=== PATIENT | male | born 1935 | race Caucasian/White ===

== ENCOUNTER 2019-07-09 10:27 | Emergency (ER) | payer MEDICARE, OTHER ==
--- NOTE | 2019-07-09 10:49 | EDM.PDOC ---
ED HPI GENERAL MEDICAL PROBLEM - General Stated Complaint: CHEST PAIN Time Seen by Provider: 07/09/19 10:46 Source of Information: Reports: Patient History Limitations: Reports: No Limitations - History of Present Illness INITIAL COMMENTS - FREE TEXT/NARRATIVE: 84 yo male with intermittent chest pain. For 2 weeks. Described as mild pressure. No radiation,and no association withand SOB,cough or fever. He has HTN ,HLD and CAD,all stable. chest Pain Score (Numeric/FACES): 1 - Related Data Allergies Allergy/AdvReac Type Severity Reaction Status Date / Time No Known Allergies Allergy Verified 07/09/19 10:57 Home Meds: Home Meds Carvedilol [Coreg] 25 mg PO BID 12/15/15 [History] Hydrochlorothiazide 25 mg PO DAILY 12/15/15 [History] Simvastatin [Zocor] 20 mg PO BEDTIME 12/15/15 [History] Finasteride 5 mg PO DAILY 07/09/19 [History] Furosemide 40 mg PO DAILY 07/09/19 [History] Meloxicam 15 mg PO DAILY 07/09/19 [History] Potassium Chloride 10 meq PO DAILY 07/09/19 [History] Past Medical History HEENT History: Reports: Cataract Cardiovascular History: Reports: High Cholesterol, Hypertension, [place] Respiratory History: Reports: None Gastrointestinal History: Reports: Colon Polyp Genitourinary History: Reports: Prostate Disorder 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 Musculoskeletal History: Reports: Osteoarthritis Neurological History: Reports: None Psychiatric History: Reports: None Endocrine/Metabolic History: Reports: None Hematologic History: Reports: None Immunologic History: Reports: None Oncologic (Cancer) History: Reports: None Dermatologic History: Reports: None - Infectious Disease History Infectious Disease History: Reports: Chicken Pox, Measles, Mumps, Shingles - Past Surgical History HEENT Surgical History: Reports: Cataract Surgery Cardiovascular Surgical History: Reports: Other (See Below) Dermatological Surgical History: Reports: Skin Biopsy Social & Family History - Family History Cardiac: Reports: Hypertension, [place] - Caffeine Use Caffeine Use: Reports: Coffee ED ROS GENERAL - Review of Systems Review Of Systems: Comprehensive ROS is negative, except as noted in HPI. ED EXAM, GENERAL - Physical Exam Exam: See Below Exam Limited By: No Limitations General Appearance: Alert, WD/WN, No Apparent Distress Ears: Normal External Exam Nose: Normal Inspection Throat/Mouth: Normal Inspection Head: Normocephalic Neck: Supple Respiratory/Chest: No Respiratory Distress, Lungs Clear Cardiovascular: Normal Peripheral Pulses, Regular Rate, Rhythm, Bradycardia GI/Abdominal: Normal Bowel Sounds Neurological: CN II-XII Intact Psychiatric: Normal Affect, Normal Mood EKG INTERPRETATION EKG Date: 07/09/19 Rhythm: NSR Course - Vital Signs Last Recorded V/S: Last Vital Signs Temp 97.5 F 07/09/19 10:30 Pulse 60 07/09/19 10:30 Resp 20 07/09/19 10:30 BP 170/98 H 07/09/19 10:30 Pulse Ox 99 07/09/19 10:30 - Orders/Labs/Meds Orders: Active Orders 24 hr Category Date Time Status EKG Documentation Completion [RC] ASDIRECTED Care 07/09/19 10:45 Active EKG 12 Lead [EK] Routine Ther 07/09/19 10:44 Ordered Labs: Laboratory Tests 07/09/19 07/09/19 07/09/19 Range/Units 11:05 11:05 11:05 WBC 11.1 (4.5-12.0) X10-3/uL RBC 5.03 (4.30-5.75) x10(6)uL Hgb 15.1 (13.5-17.8) g/dL Hct 44.2 (30.0-51.3) % MCV 87.9 (80-96) fL MCH 30.0 (27.7-33.6) pg MCHC 34.1 (32.2-35.4) g/dL RDW 12.0 (11.5-15.5) % Plt Count 289 (125-369) X10(3)uL MPV 7.9 (7.4-10.4) fL Neut % (Auto) 80.9 (46-82) % Lymph % (Auto) 10.6 L (13-37) % [place] % (Auto) 6.2 (4-12) % Eos % (Auto) 2 (1.0-5.0) % Baso % (Auto) 1 (0-2) % Neut # (Auto) 8.9 H (1.6-8.3) # Lymph # (Auto) 1.2 (0.6-5.0) # [place] # (Auto) 0.7 (0.0-1.3) # Eos # (Auto) 0.2 (0.0-0.8) # Baso # (Auto) 0.1 (0.0-0.2) # Sodium 138 (135-145) mmol/L Potassium 3.2 L (3.5-5.3) mmol/L Chloride 97 L (100-110) mmol/L Carbon Dioxide 33 H (21-32) mmol/L BUN 17 (7-18) mg/dL Creatinine 1.3 (0.70-1.30) mg/dL Est Cr Clr Drug Dosing 46.10 mL/min Estimated GFR (MDRD) 52 L (>60) BUN/Creatinine Ratio 13.1 (9-20) Glucose 248 H (80-116) mg/dL Calcium 8.9 (8.6-10.2) mg/dL Troponin I 15.4 (4.0-60.3) pg/mL NT-Pro-B Natriuret Pep 247 (<=450) pg/mL Departure - Departure Time of Disposition: 11:40 Disposition: Home, Self-Care 01 Condition: Good Clinical Impression: Atypical chest pain Sepsis Event Note - Focused Exam Vital Signs: Vital Signs Temp Pulse Resp BP Pulse Ox 07/09/19 10:30 97.5 F 60 20 170/98 H 99 Date Exam was Performed: 07/09/19 Time Exam was Performed: 11:40 - Problem List & Annotations (1) Hyperglycemia due to type 2 diabetes mellitus SNOMED Code(s): 591895293096919, 071203475513580 Code(s): E11.65 - TYPE 2 DIABETES MELLITUS WITH HYPERGLYCEMIA Status: Acute Current Visit: Yes (2) HTN (hypertension) SNOMED Code(s): 75909562 Code(s): I10 - ESSENTIAL (PRIMARY) HYPERTENSION Status: Acute Current Visit: Yes (3) Atypical chest pain SNOMED Code(s): 772786873 Code(s): R07.89 - OTHER CHEST PAIN Status: Acute Current Visit: Yes - Problem List Review Problem List Initiated/Reviewed/Updated: Yes - My Orders Last 24 Hours: My Active Orders 07/09/19 10:44 EKG 12 Lead [EK] Routine 07/09/19 10:45 EKG Documentation Completion [RC] ASDIRECTED - Assessment/Plan Last 24 Hours: My Active Orders 07/09/19 10:44 EKG 12 Lead [EK] Routine 07/09/19 10:45 EKG Documentation Completion [RC] ASDIRECTED Plan: I will Discharge him . EKG was non acute. CXR normal.Trop negative.See Radha Dean.
--- NOTE | 2019-07-09 11:15 | CR ---
INDICATION: Chest discomfort. CHEST TWO VIEWS: Two PA views and a lateral view of the chest were obtained - no comparisons. The heart is normal in size and shape. The aorta is slightly tortuous with calcification in the arch. Bony structures appear to be grossly intact. A definite active infiltrate or effusion was not identified. Overlying EKG leads are noted. IMPRESSION: 1. No acute process. 2. ASD aorta. MTDD
[2019-07-09 12:15] VITALS: PULSE 57
[2019-07-09 13:16] VITALS: BP 138/80
== END 2019-07-09 12:20 | disposition home or self-care (01) ==
LOC: FB.ED 10:27
DX: R07.89 Other chest pain (principal); I10 Essential (primary) hypertension; E78.5 Hyperlipidemia, unspecified; I25.10 Atherosclerotic heart disease of native coronary artery without angina pectoris; I25.2 Old myocardial infarction; Z79.899 Other long term (current) drug therapy
CPT/HCPCS: 36415; 71046; 80048; 83880; 84484; 85025; 93005; 99284; 99285-25

== ENCOUNTER 2019-07-22 09:20 | Emergency (ER) | payer MEDICARE, OTHER ==
--- NOTE | 2019-07-22 10:20 | EDM.PDOC ---
ED HPI GENERAL MEDICAL PROBLEM - General Chief Complaint: Genitourinary Problem Stated Complaint: TROUBLE URINATING Time Seen by Provider: 07/22/19 10:16 Source of Information: Reports: Patient History Limitations: Reports: No Limitations - History of Present Illness INITIAL COMMENTS - FREE TEXT/NARRATIVE: Patient with a h/o BPH presents with intermittent decreased urinary stream x 2 days and inability to urinate this morning. Complains of right flank pain. No fevers or N/V. Location: Reports: Abdomen Severity: Moderate Right Lower Groin Pain Score (Numeric/FACES): 7 - Related Data Allergies Allergy/AdvReac Type Severity Reaction Status Date / Time No Known Allergies Allergy Verified 07/09/19 10:57 Home Meds: Home Meds Hydrochlorothiazide 25 mg PO DAILY 12/15/15 [History] Simvastatin [Zocor] 20 mg PO BEDTIME 12/15/15 [History] carvediloL [Coreg] 25 mg PO BID 12/15/15 [History] Finasteride 5 mg PO DAILY 07/09/19 [History] Furosemide 40 mg PO DAILY 07/09/19 [History] Meloxicam 15 mg PO DAILY 07/09/19 [History] Potassium Chloride 10 meq PO DAILY 07/09/19 [History] Doxazosin [Cardura] 1 mg PO DAILY #15 tab 07/22/19 [Rx] Past Medical History HEENT History: Reports: Cataract Cardiovascular History: Reports: High Cholesterol, Hypertension, [place] Respiratory History: Reports: None Gastrointestinal History: Reports: Colon Polyp Genitourinary History: Reports: BPH 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 Musculoskeletal History: Reports: Osteoarthritis Neurological History: Reports: None Psychiatric History: Reports: None Endocrine/Metabolic History: Reports: None Hematologic History: Reports: None Immunologic History: Reports: None Oncologic (Cancer) History: Reports: None Dermatologic History: Reports: None - Infectious Disease History Infectious Disease History: Reports: Chicken Pox, Measles, Mumps, Shingles - Past Surgical History HEENT Surgical History: Reports: Cataract Surgery Cardiovascular Surgical History: Reports: Other (See Below) Dermatological Surgical History: Reports: Skin Biopsy Social & Family History - Family History Cardiac: Reports: Hypertension, [place] - Caffeine Use Caffeine Use: Reports: Coffee ED ROS GENERAL - Review of Systems Review Of Systems: Comprehensive ROS is negative, except as noted in HPI. ED EXAM, RENAL/ - Physical Exam Exam: See Below Exam Limited By: No Limitations General Appearance: Alert, WD/WN, No Apparent Distress Throat/Mouth: No Airway Compromise Head: Atraumatic, Normocephalic Neck: Full Range of Motion Respiratory/Chest: No Respiratory Distress, Lungs Clear, Normal Breath Sounds Cardiovascular: Regular Rate, Rhythm, No Murmur GI/Abdominal: Soft, Non-Tender, No Distention, Other (Examined after Sarabia catheter insertion) Back Exam: Normal Inspection Extremities: Normal Range of Motion Neurological: Alert, Normal Cognition Skin Exam: Warm, Dry, Intact Course - Vital Signs Last Recorded V/S: Last Vital Signs Temp 36.8 C 07/22/19 09:33 Pulse 76 07/22/19 09:33 Resp BP 146/76 H 07/22/19 09:33 Pulse Ox 98 07/22/19 09:33 - Orders/Labs/Meds Orders: Active Orders 24 hr Category Date Time Status Sarabia Catheter Insertion [Insert Urinary Catheter] [OM. Care 07/22/19 10:00 Ordered PC] Q24H Urinary Catheter Assessment [RC] QSMOFT Care 07/22/19 09:52 Active Doxazosin [Cardura] Med 07/22/19 10:47 Once 1 mg PO ONETIME ONE Medication Orders Doxazosin Mesylate (Cardura) 1 mg PO ONETIME ONE Stop: 07/22/19 10:48 Labs: Laboratory Tests 07/22/19 Range/Units 10:08 Urine Color Yellow (YELLOW) Urine Appearance Clear (CLEAR) Urine pH 5.0 (5.0-6.5) Ur Specific Guin 1.015 (1.010-1.025) Urine Protein Negative (NEGATIVE) mg/dL Urine Glucose (UA) Normal (NORMAL) mg/dL Urine Ketones Negative (NEGATIVE) mg/dL Urine Occult Blood Negative (NEGATIVE) Urine Nitrite Negative (NEGATIVE) Urine Bilirubin Negative (NEGATIVE) Urine Urobilinogen Normal (NEGATIVE) mg/dL Ur Leukocyte Esterase Negative (NEGATIVE) Urine RBC 0-5 (0-5) Urine WBC 0-5 (0-5) Ur Squamous Epith Cells Rare (NS,R,O) Urine Bacteria Rare H (NS) Meds: Medications Generic Name Dose Route Start Last Admin Trade Name Freq PRN Reason Stop Dose Admin Doxazosin Mesylate 1 mg 07/22/19 10:47 Cardura PO 07/22/19 10:48 ONETIME ONE - Re-Assessments/Exams Free Text/Narrative Re-Assessment/Exam: 07/22/19 10:48 Bladder scan: 900 ml/ Sarabia placed with complete resolution of symptoms. 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 Fill the prescription for Doxazosin at [facility] and take as directed. Return to the ER if you believe you are having a medical emergency. Sepsis Event Note - Evaluation Sepsis Screening Result: No Definite Risk - Focused Exam Vital Signs: Vital Signs Temp Pulse BP Pulse Ox 07/22/19 09:33 36.8 C 76 146/76 H 98 Date Exam was Performed: 07/22/19 Time Exam was Performed: 10:48 - My Orders Last 24 Hours: My Active Orders 07/22/19 09:52 Urinary Catheter Assessment [RC] QSHIFT 07/22/19 10:00 Sarabia Catheter Insertion [Insert Urinary Catheter] [OM.PC] Q24H 07/22/19 10:47 Doxazosin [Cardura] 1 mg PO ONETIME ONE - Assessment/Plan Last 24 Hours: My Active Orders 07/22/19 09:52 Urinary Catheter Assessment [RC] QSHIFT 07/22/19 10:00 Sarabia Catheter Insertion [Insert Urinary Catheter] [OM.PC] Q24H 07/22/19 10:47 Doxazosin [Cardura] 1 mg PO ONETIME ONE
[2019-07-22 11:50] VITALS: BP 166/69; PULSE 56
== END 2019-07-22 11:25 | disposition home or self-care (01) ==
LOC: FB.ED 09:20
DX: N40.1 Benign prostatic hyperplasia with lower urinary tract symptoms (principal); R33.8 Other retention of urine; E78.00 Pure hypercholesterolemia, unspecified; I10 Essential (primary) hypertension; I25.2 Old myocardial infarction; Z79.899 Other long term (current) drug therapy
CPT/HCPCS: 51702; 51798; 81001; 99283; 99284-25; A9270-GY

== ENCOUNTER 2020-12-27 15:40 | Inpatient (IN) | payer MEDICARE, OTHER ==
--- NOTE | 2020-12-27 16:17 | EDM.PDOC ---
ED HPI GENERAL MEDICAL PROBLEM - General Chief Complaint: General Stated Complaint: general Time Seen by Provider: 12/27/20 16:12 Source of Information: Reports: Patient History Limitations: Reports: No Limitations - History of Present Illness INITIAL COMMENTS - FREE TEXT/NARRATIVE: Og has hx of metastatic prostate cancer , was recently moved to assisted living about a month ago, he is DNI /DNR , terminal with his underlying malignancy, but has not established with hospice yet, has been progressively getting weaker over the past week and was sent her but assisted living staff with chief c/o being actively dieing, pt is here with his family, he is alert, answers simple questions and follow simple commands, appear sleepy , denies pain, but report feeling progressively weak , not having appetite , and experiencing difficulties with breathing, there is no fever or chills, and pt has regular BMs. - Related Data Allergies Allergy/AdvReac Type Severity Reaction Status Date / Time No Known Allergies Allergy Verified 07/09/19 10:57 Home Meds: Home Meds carvediloL [Coreg] 25 mg PO BID 12/15/15 [History] Finasteride 5 mg PO DAILY 07/09/19 [History] Furosemide 40 mg PO DAILY 07/09/19 [History] Potassium Chloride 10 meq PO DAILY 07/09/19 [History] Melatonin 3 mg BEDTIME 12/27/20 [History] Tamsulosin [Flomax] 0.4 mg BEDTIME 12/27/20 [History] dronabinoL [Dronabinol] 2.5 mg BID 12/27/20 [History] oxyCODONE 5 mg Q4HR 12/27/20 [History] Past Medical History HEENT History: Reports: Cataract Cardiovascular History: Reports: High Cholesterol, Hypertension, [place] Respiratory History: Reports: None Gastrointestinal History: Reports: Colon Polyp Genitourinary History: Reports: BPH 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 Musculoskeletal History: Reports: Osteoarthritis Neurological History: Reports: None Psychiatric History: Reports: None Endocrine/Metabolic History: Reports: None Hematologic History: Reports: None Immunologic History: Reports: None Oncologic (Cancer) History: Reports: None Dermatologic History: Reports: None - Infectious Disease History Infectious Disease History: Reports: Chicken Pox, Measles, Mumps, Shingles - Past Surgical History Head Surgeries/Procedures: Reports: None HEENT Surgical History: Reports: Cataract Surgery Cardiovascular Surgical History: Reports: Other (See Below) Other Cardiovascular Surgeries/Procedures: CORONARY ANGIOPLASTY GI Surgical History: Reports: Colonoscopy Dermatological Surgical History: Reports: Skin Biopsy Social & Family History - Family History Cardiac: Reports: Hypertension, [place] - Tobacco Use Tobacco Use Status *Q: Current Status Unknown - Caffeine Use Caffeine Use: Reports: None ED ROS GENERAL - Review of Systems Review Of Systems: See Below Constitutional: Reports: Weakness, Fatigue HEENT: Reports: No Symptoms Respiratory: Reports: Shortness of Breath, Cough Cardiovascular: Reports: No Symptoms GI/Abdominal: Reports: Anorexia. Denies: Abdominal Pain, Bloody Stool, Constipation, Diarrhea, Nausea, Vomiting : Reports: No Symptoms Musculoskeletal: Reports: No Symptoms Skin: Reports: No Symptoms Neurological: Reports: Confusion, Dizziness ED EXAM, GENERAL - Physical Exam Exam: See Below Exam Limited By: Altered Mental Status General Appearance: Lethargic, Cachetic Eye Exam: Bilateral Eye: Normal Inspection Nose: Normal Inspection Throat/Mouth: Normal Inspection, Normal Oropharynx Head: Atraumatic Neck: Normal Inspection, Supple Respiratory/Chest: Crackles Cardiovascular: Normal Peripheral Pulses, Regular Rate, Rhythm GI/Abdominal: Normal Bowel Sounds, Soft Back Exam: Normal Inspection Extremities: Normal Inspection, Normal Range of Motion Neurological: Alert, No Motor/Sensory Deficits Course - Vital Signs Text/Narrative:: pt is terminal with underlying malignancy, will admit for comfort care, Dr Fuentes was contacted and was in acceptance of pt care. Last Recorded V/S: Last Vital Signs Temp 35.8 C L 12/27/20 15:45 Pulse 78 12/27/20 15:45 Resp 19 12/27/20 15:45 BP 89/57 L 12/27/20 15:45 Pulse Ox 92 L 12/27/20 15:45 Departure - Departure Time of Disposition: 16:22 Disposition: Admitted As Inpatient 64 Clinical Impression: Metastatic disease - Discharge Information Sepsis Event Note (ED) - Evaluation Sepsis Screening Result: No Definite Risk - Focused Exam Vital Signs: Vital Signs Temp Pulse Resp BP Pulse Ox 12/27/20 15:45 35.8 C L 78 19 89/57 L 92 L
[2020-12-27] MEDS ORDERED: Morphine 4 MG/ML VIAL IVPUSH PRN (16:25)
[2020-12-27] MEDS: Morphine 2 MG/ML SYRINGE IVPUSH PRN ×2 (20:42→22:45)
[2020-12-27] MEDS: Sodium Chloride 0.9% 10 ML Syringe FLUSH PRN ×2 (20:44→22:47)
[2020-12-28] MEDS: Sodium Chloride 0.9% 10 ML Syringe FLUSH PRN ×9 (01:30→23:05)
[2020-12-28] MEDS: Morphine 2 MG/ML SYRINGE IVPUSH PRN ×7 (01:30→21:08)
[2020-12-28] MEDS: LORazepam 2 MG/ML SDV IVPUSH PRN ×2 (02:00→19:25)
--- NOTE | 2020-12-28 08:31 | PCM.HP.2 ---
H&P History of Present Illness - General Date of Service: 12/28/20 Admit Problem/Dx: Admission Diagnosis/Problem Admission Diagnosis/Problem Metastatic adenocarcinoma Source of Information: Family, Old Records, Provider, RN History Limitations: Reports: Altered Mental Status - History of Present Illness Initial Comments - Free Text/Narative: Mr. Adams was brought into the ER actively dying. He has known history of metastatic prostate cancer, but is no longer admitted with any treatment. I did time of my history taking, he is obtunded and unable to give much history. Generalized Pain Score (Numeric/FACES): 5 - Related Data Allergies/Adverse Reactions: Allergies Allergy/AdvReac Type Severity Reaction Status Date / Time No Known Allergies Allergy Verified 07/09/19 10:57 Home Medications: Home Meds carvediloL [Coreg] 25 mg PO BID 12/15/15 [History] Finasteride 5 mg PO DAILY 07/09/19 [History] Furosemide 40 mg PO DAILY 07/09/19 [History] Potassium Chloride 10 meq PO DAILY 07/09/19 [History] Melatonin 3 mg BEDTIME 12/27/20 [History] Tamsulosin [Flomax] 0.4 mg BEDTIME 12/27/20 [History] dronabinoL [Dronabinol] 2.5 mg BID 12/27/20 [History] oxyCODONE 5 mg Q4HR 12/27/20 [History] Past Medical History HEENT History: Reports: Cataract Cardiovascular History: Reports: High Cholesterol, Hypertension, [place] Respiratory History: Reports: None Gastrointestinal History: Reports: Colon Polyp Genitourinary History: Reports: BPH [employer]OVER History: Reports: None Musculoskeletal History: Reports: Osteoarthritis Neurological History: Reports: None Psychiatric History: Reports: None Endocrine/Metabolic History: Reports: None Hematologic History: Reports: None Immunologic History: Reports: None Oncologic (Cancer) History: Reports: None Dermatologic History: Reports: None - Infectious Disease History Infectious Disease History: Reports: Chicken Pox, Measles, Mumps, Shingles - Past Surgical History Head Surgeries/Procedures: Reports: None HEENT Surgical History: Reports: Cataract Surgery Cardiovascular Surgical History: Reports: Other (See Below) Other Cardiovascular Surgeries/Procedures: CORONARY ANGIOPLASTY GI Surgical History: Reports: Colonoscopy Dermatological Surgical History: Reports: Skin Biopsy Social & Family History - Family History Cardiac: Reports: Hypertension, [place] - Tobacco Use Tobacco Use Status *Q: Unknown Ever Used Tobacco - Caffeine Use Caffeine Use: Reports: None - Recreational Drug Use Recreational Drug Use: No H&P Review of Systems - Review of Systems: Review Of Systems: Comprehensive ROS is negative, except as noted in HPI. Exam - Exam Exam: See Below - Vital Signs Vital Signs: Last Vital Signs Temp 97.4 F 12/27/20 20:30 Pulse 86 12/27/20 20:30 Resp 18 12/27/20 20:30 BP 84/42 L 12/27/20 20:30 Pulse Ox 93 L 12/27/20 20:30 Weight: 72.756 kg - Exam Quality Assessment: No: Supplemental Oxygen General: Obtunded Lungs: Crackles Cardiovascular: Regular Rate Skin: Cool Neuro Extensive - Mental Status: No: Oriented x3 Psychiatric: No: Alert - Patient Data Lab Results Last 24 hrs: Laboratory Results - last 24 hr 12/27/20 12/27/20 12/27/20 Range/Units 16:31 16:31 16:50 WBC 7.9 (3.2-10.1) x10-3/uL RBC 2.29 L (3.90-5.90) x10(6)uL Hgb 5.7 L* (12.9-17.7) g/dL Hct 18.1 L* (38.3-50.1) % MCV 79.0 L (80.8-98.7) fL MCH 25.0 L (27.0-33.3) pg MCHC 31.7 (28.7-35.3) g/dL RDW 16.4 H (12.4-15.0) % Plt Count 295 (117-477) x10(3)uL MPV 6.3 L (6.7-11.0) fL Add Manual Diff Yes Neutrophils % (Manual) 83 H (46-82) % Band Neutrophils % 6 (0-6) % Lymphocytes % (Manual) 5 L (13-37) % Monocytes % (Manual) 3 L (4-12) % Metamyelocytes % 2 H (0-0) % Myelocytes % 1 H (0-0) % Hypochromasia Moderate H Anisocytosis Moderate H Microcytosis Few Macrocytosis Rare Sodium 133 L (135-145) mmol/L Potassium 4.5 D (3.5-5.3) mmol/L Chloride 98 L D (100-110) mmol/L Carbon Dioxide 21 (21-32) mmol/L BUN 30 H (7-18) mg/dL Creatinine 1.3 (0.70-1.30) mg/dL Est Cr Clr Drug Dosing 32.11 mL/min Estimated GFR (MDRD) 52 L (>60) BUN/Creatinine Ratio 23.1 H (9-20) Glucose 277 H D (80-116) mg/dL Calcium 7.5 L (8.6-10.2) mg/dL Total Bilirubin 1.2 (0.1-1.3) mg/dL AST 80 H D (5-25) IU/L ALT 22 D (12-36) U/L Alkaline Phosphatase 311 H (56-112) IU/L Total Protein 6.3 (6.0-8.0) g/dL Albumin 1.9 L (3.2-4.6) g/dL Globulin 4.4 g/dL Albumin/Globulin Ratio 0.4 Urine Color (YELLOW) Urine Appearance (CLEAR) Urine pH (5.0-6.5) Ur Specific [place] (1.010-1.025) Urine Protein (NEGATIVE) mg/dL Urine Glucose (UA) (NORMAL) mg/dL Urine Ketones (NEGATIVE) mg/dL Urine Occult Blood (NEGATIVE) Urine Nitrite (NEGATIVE) Urine Bilirubin (NEGATIVE) Urine Urobilinogen (NEGATIVE) mg/dL Ur Leukocyte Esterase (NEGATIVE) Urine RBC (0-5) Urine WBC (0-5) Ur Squamous Epith Cells (NS,R,O) Urine Bacteria (NS) SARS-CoV-2 RNA (JAQUELIN) Negative (NEGATIVE) 12/27/20 Range/Units 18:02 WBC (3.2-10.1) x10-3/uL RBC (3.90-5.90) x10(6)uL Hgb (12.9-17.7) g/dL Hct (38.3-50.1) % MCV (80.8-98.7) fL MCH (27.0-33.3) pg MCHC (28.7-35.3) g/dL RDW (12.4-15.0) % Plt Count (117-477) x10(3)uL MPV (6.7-11.0) fL Add Manual Diff Neutrophils % (Manual) (46-82) % Band Neutrophils % (0-6) % Lymphocytes % (Manual) (13-37) % Monocytes % (Manual) (4-12) % Metamyelocytes % (0-0) % Myelocytes % (0-0) % Hypochromasia Anisocytosis Microcytosis Macrocytosis Sodium (135-145) mmol/L Potassium (3.5-5.3) mmol/L Chloride (100-110) mmol/L Carbon Dioxide (21-32) mmol/L BUN (7-18) mg/dL Creatinine (0.70-1.30) mg/dL Est Cr Clr Drug Dosing mL/min Estimated GFR (MDRD) (>60) BUN/Creatinine Ratio (9-20) Glucose (80-116) mg/dL Calcium (8.6-10.2) mg/dL Total Bilirubin (0.1-1.3) mg/dL AST (5-25) IU/L ALT (12-36) U/L Alkaline Phosphatase (56-112) IU/L Total Protein (6.0-8.0) g/dL Albumin (3.2-4.6) g/dL Globulin g/dL Albumin/Globulin Ratio Urine Color Yellow (YELLOW) Urine Appearance Slightly cloudy (CLEAR) Urine pH 5.0 (5.0-6.5) Ur Specific [place] 1.020 (1.010-1.025) Urine Protein Negative (NEGATIVE) mg/dL Urine Glucose (UA) Normal (NORMAL) mg/dL Urine Ketones 15 H (NEGATIVE) mg/dL Urine Occult Blood Moderate H (NEGATIVE) Urine Nitrite Negative (NEGATIVE) Urine Bilirubin Negative (NEGATIVE) Urine Urobilinogen Normal (NEGATIVE) mg/dL Ur Leukocyte Esterase Large H (NEGATIVE) Urine RBC 50-75 H (0-5) Urine WBC >100 H (0-5) Ur Squamous Epith Cells Rare (NS,R,O) Urine Bacteria Many H (NS) SARS-CoV-2 RNA (JAQUELIN) (NEGATIVE) Result Diagrams: 12/27/20 16:31 12/27/20 16:31 Sepsis Event Note - Evaluation Sepsis Screening Result: No Definite Risk - Focused Exam Vital Signs: Vital Signs Temp Pulse Resp BP Pulse Ox 12/27/20 20:30 97.4 F 86 18 84/42 L 93 L - Problem List (1) Palliative care encounter SNOMED Code(s): 196719569, 588767151 ICD Code: Z51.5 - ENCOUNTER FOR PALLIATIVE CARE Status: Acute Current Visit: Yes (2) Severe anemia SNOMED Code(s): 809003806 ICD Code: D64.9 - ANEMIA, UNSPECIFIED Status: Acute Current Visit: Yes (3) Metastatic disease SNOMED Code(s): 679062460 ICD Code: C79.9 - SECONDARY MALIGNANT NEOPLASM OF UNSPECIFIED SITE Status: Acute Current Visit: Yes Problem List Initiated/Reviewed/Updated: Yes Orders Last 24hrs: Active Orders 24 hr Category Date Time Status Patient Status [ADT] Routine ADT 12/27/20 16:46 Active Antiembolic Devices [RC] .Routine Care 12/27/20 16:49 Active Insert Sarabia Catheter [Insert Urinary Catheter] [OM.PC] Care 12/27/20 17:00 Ordered Q24H Pulse Oximetry [RC] .PRN Care 12/27/20 16:46 Active Urinary Catheter Assessment [RC] QSHIFT Care 12/27/20 16:58 Active VTE/DVT Education [RC] Click to Edit Care 12/27/20 16:49 Active Vital Signs [RC] 08,12,16,20,00,04 Care 12/27/20 16:46 Active LORazepam [Ativan] Med 12/27/20 16:24 Active 1 mg IVPUSH Q6H PRN Morphine Med 12/27/20 19:35 Active 2 mg IVPUSH Q2H PRN Sodium Chloride 0.9% [Saline Flush] Med 12/27/20 18:40 Active 10 ml FLUSH ASDIRECTED PRN DVT/VTE Prophylaxis Reflex [OM.PC] Per Unit Routine Oth 12/27/20 16:46 Ordered Renew/Continue Urinary Catheter [OM.PC] Routine Oth 12/28/20 00:21 Ordered Resuscitation Status Routine Resus Stat 12/27/20 16:46 Ordered Medication Orders Lorazepam (Lorazepam 2 Mg/Ml Sdv) 1 mg IVPUSH Q6H PRN PRN Reason: anxiety , pain Last Admin: 12/28/20 02:00 Dose: 1 mg Documented by: MEKA Morphine Sulfate (Morphine 2 Mg/Ml Syringe) 2 mg IVPUSH Q2H PRN PRN Reason: Pain Last Admin: 12/28/20 05:10 Dose: 2 mg Documented by: Admin: 12/28/20 01:30 Dose: 2 mg Documented by: Admin: 12/27/20 22:45 Dose: 2 mg Documented by: Admin: 12/27/20 20:42 Dose: 2 mg Documented by: MEKA Sodium Chloride (Sodium Chloride 0.9% 10 Ml Syringe) 10 ml FLUSH ASDIRECTED PRN PRN Reason: Keep Vein Open Last Admin: 12/28/20 05:05 Dose: 10 ml Documented by: Admin: 12/28/20 02:04 Dose: 10 ml Documented by: Admin: 12/28/20 01:30 Dose: 10 ml Documented by: Admin: 12/27/20 22:47 Dose: 10 ml Documented by: Admin: 12/27/20 20:44 Dose: 10 ml Documented by: MEKA Assessment/Plan Comment:: Comfort measures only. - Mortality Measure Prognosis:: Poor
[2020-12-28 15:55] VITALS: BP 99/45; PULSE 98
[2020-12-28] MEDS ORDERED: LORazepam 2 MG/ML SDV IVPUSH PRN (23:11)
[2020-12-28] MEDS ORDERED: Morphine 2 MG/ML SYRINGE IVPUSH PRN (23:12)
[2020-12-29] MEDS: Sodium Chloride 0.9% 10 ML Syringe FLUSH PRN ×2 (00:54→04:27)
[2020-12-29] MEDS: Atropine 1% Ophth Soln 5 ML BOTTLE SL PRN ×2 (01:41→01:42)
[2020-12-29] MEDS: Morphine 2 MG/ML SYRINGE IVPUSH PRN ×2 (01:56→04:26)
[2020-12-29] MEDS ORDERED: Morphine 2 MG/ML SYRINGE IVPUSH PRN (07:00)
[2020-12-29] MEDS ORDERED: Atropine 1% Ophth Soln 5 ML BOTTLE SL PRN (07:21)
--- NOTE | 2020-12-30 00:21 | DISCH ---
DISCHARGE DATE: 12/29/2020 REASON FOR ADMISSION: Metastatic prostate cancer and severe anemia. CAUSE OF : Acute cardiorespiratory failure due to metastatic cancer of the prostate. BRIEF HISTORY: This is an 85-year-old male, known to have prostate cancer, admitted for palliative care from an assisted living. The family was in agreement for total withdrawal of care except for comfort measures. He on 12/29 at 8 in the morning. I spent less than 30 minutes in the discharge of the patient. /[id number] JVUENTINO/BRAEDEN
== END 2020-12-29 08:00 | disposition expired | DRG 951 ==
LOC: FB.ED 15:40 → FB.MS 16:41
PROVIDERS: ADMIT Family Medicine; ATTEND Family Medicine
DX: Z51.5 Encounter for palliative care (principal); C79.9 Secondary malignant neoplasm of unspecified site; R53.1 Weakness; R09.2 Respiratory arrest; C61 Malignant neoplasm of prostate; N40.1 Benign prostatic hyperplasia with lower urinary tract symptoms; D64.9 Anemia, unspecified; R53.81 Other malaise; Z66 Do not resuscitate; E78.00 Pure hypercholesterolemia, unspecified; I10 Essential (primary) hypertension; N40.0 Benign prostatic hyperplasia without lower urinary tract symptoms; M19.90 Unspecified osteoarthritis, unspecified site; Z20.822 Contact with and (suspected) exposure to COVID-19; Z79.899 Other long term (current) drug therapy; I25.2 Old myocardial infarction; Z98.49 Cataract extraction status, unspecified eye; Z82.49 Family history of ischemic heart disease and other diseases of the circulatory system; Z95.5 Presence of coronary angioplasty implant and graft; Z86.010 Personal history of colon polyps
CPT/HCPCS: 36415; 51702; 80053; 81001; 85025; 99285; A9270-GY; J2060; J2270; U0002